=== PATIENT | male | born 1970 | race American Indian/Alaskan Native ===

== ENCOUNTER 2019-11-28 14:13 | Inpatient (IN) | payer OTHER ==
[2019-11-28 14:34] LABS: Basophils % (Auto) 0.5 % (0.0-1.8); Eosinophils # (Auto) 0.1 K/mm3 (0.0-0.4); Eosinophils % (Auto) 0.7 % (0.0-4.3); Hemoglobin 13.1 gm/dl (11.8-15.2); Lymphocytes # (Auto) 3.3 K/mm3 (1.2-5.4); Lymphocytes % (Auto) 43.1 % (13.4-35.0); Mean Corpuscular HGB Conc 35 % (32-34); Mean Corpuscular Volume 97 fl (84-94); Monocytes # (Auto) 0.6 K/mm3 (0.0-0.8); Monocytes % (Auto) 7.8 % (0.0-7.3); Platelet Count 291 K/mm3 (140-440); Red Blood Count 3.83 M/mm3 (3.65-5.03); Red Cell Distribution Width 14.3 % (13.2-15.2)
[2019-11-28] MEDS ORDERED: ALTEPLASE 100 MG INJ KIT IV ONE ×2 (14:38)
[2019-11-28 14:45] LABS: INR 0.94 (0.87-1.13)
--- NOTE | 2019-11-28 14:45 | Cat Scan Report ---
CT HEAD WITHOUT CONTRAST INDICATION: Right sided facial weakness. Aphasia.. TECHNIQUE: All CT scans at this location are performed using CT dose reduction for ALARA by means of automated e xposure control. COMPARISON: None available. FINDINGS: HEMORRHAGE: None. EXTRA-AXIAL SPACES: Normal in size and morphology for the patient's age. VENTRICULAR SYSTEM: Normal in size and morphology for the patient's age. BRAIN PARENCHYMA: No acute findings. MIDLINE SHIFT OR HERNIATION: None. ORBITS: Normal as visualized. SOFT TISSUES OF HEAD: Normal. CALVARIUM: Normal. VISUALIZED PARANASAL SINUSES AND MASTOID AIR CELLS: Clear. ADDITIONAL FINDINGS: None. IMPRESSION: 1. No acute intracranial abnormality. CODE STROKE COMMUNICATION: Time of Communication: 1340 hours central time Licensed Practitioner Receiving Report: Dr. Badillo Signer Name: Johnie Richter MD Signed: 11/28/2019 2:41 PM Workstation Name: [id number]
[2019-11-28 14:46] LABS: Partial Thromboplastin Time 26.7 Sec. (24.2-36.6)
[2019-11-28 14:47] LABS: BUN/Creatinine Ratio 11; Blood Urea Nitrogen 11 mg/dL (9-20); Calcium 9.4 mg/dL (8.4-10.2); Hemolysis Index 10
--- NOTE | 2019-11-28 14:49 | Emergency Department Report ---
ED Neuro Deficit HPI - General Chief Complaint: Neuro Symptoms/Deficit Stated Complaint: STROKE Time Seen by Provider: 11/28/19 14:26 Source: EMS Mode of arrival: Stretcher Limitations: No Limitations - History of Present Illness Initial Comments: Patient is 49 years old male with history of hypertension. Patient brought to the emergency room from home via EMS for stroke evaluation. Patient stated that he was mourning his grass when all of a sudden he had a slurred speech and right facial droop and right upper extremity weakness and numbness. Patient stated this is happening approximately 1300 today. Patient denied any blurry vision, ataxia, bowel or bladder incontinence. Code stroke immediately initiated and patient moved to CT for stat CT brain without contrast. Stroke telemetry neurology immediately consulted and patient examined by Dr. Garcia. Patient found to be a TPA candidate Dr. Garcia order a TPA. -: Sudden, This morning Location: speech, right face, right arm Presenting Symptoms: Present: Weak/Paralyzed One Side, Facial Droop/Numbness, Unable to Speak Clearly History of same: No Place: home Context: sudden onset Associated Symptoms: denies other symptoms Treatments Prior to Arrival: none - Related Data Allergies/Adverse Reactions: Allergies Allergy/AdvReac Type Severity Reaction Status Date / Time No Known Allergies Allergy Unverified 11/28/19 14:14 ED Review of Systems ROS: Stated complaint: STROKE Other details as noted in HPI Comment: All other systems reviewed and negative Constitutional: denies: chills, fever Respiratory: denies: cough, shortness of breath, SOB with exertion, SOB at rest, wheezing Cardiovascular: denies: chest pain, palpitations Gastrointestinal: denies: abdominal pain, nausea, vomiting, diarrhea, constipation, hematemesis, melena, hematochezia Musculoskeletal: denies: back pain Neurological: weakness, numbness. denies: headache, paresthesias, confusion, abnormal gait ED Neuro Physical Exam - General Limitations: No Limitations General appearance: alert, in no apparent distress Suspected Stroke: Yes - Head Head exam: Present: atraumatic, normocephalic, normal inspection - Eye Eye exam: Present: normal appearance, PERRL - ENT ENT exam: Present: normal exam, normal orophraynx, mucous membranes moist - Neck Neck exam: Present: normal inspection, full ROM. Absent: tenderness, meningismus, lymphadenopathy, thyromegaly - Respiratory Respiratory exam: Present: normal lung sounds bilaterally - Cardiovascular Cardiovascular Exam: Present: regular rate, normal rhythm, normal heart sounds - GI/Abdominal GI/Abdominal exam: Present: soft, normal bowel sounds. Absent: distended, tenderness, guarding, rebound, rigid, organomegaly, mass, bruit, pulsatile mass, hernia - Extremities Exam Extremities exam: Present: normal inspection, full ROM, normal capillary refill. Absent: pedal edema, calf tenderness - Back Exam Back exam: Present: normal inspection, full ROM - Neurological Exam Neurological exam: Present: alert, oriented X3 - NIHSS Assessment Interval: Baseline 1a. Level of Consciousness: alert/keenly responsive 1b. LOC Questions: answers both correctly 1c. LOC Commands: performs tasks correctly 2. Best Gaze: normal 3. Visual: no visual loss 4. Facial Palsy: minor paralysis 5b. Motor Arm Right: drift 5a. Motor Arm Left: no drift 6a. Motor Leg Left: no drift 6b. Motor Leg Right: no drift 7. Limb Ataxia: absent 8. Sensory: mild/moderate sensory loss 9. Best Language: mild/moderate aphasia 10. Dysarthria: mild/moderate dysarthria 11. Extinction/Inattention: no abnormality Total Score: 5 Stroke Severity: Moderate Stroke - Psychiatric Psychiatric exam: Present: normal mood - Skin Skin exam: Present: warm, intact, normal color ED Course Vital Signs 11/28/19 11/28/19 11/28/19 14:30 14:47 14:49 Temperature 98.4 F Pulse Rate 80 82 84 Pulse Rate [ 72 Left Arm] Respiratory 16 Rate Respiratory 16 Rate [Left Arm] Blood Pressure 105/63 107/65 107/65 Blood Pressure 107/65 [Left Arm] O2 Sat by Pulse 97 Oximetry O2 Sat by Pulse 95 Oximetry [Left Arm] 11/28/19 11/28/19 15:00 15:15 Temperature Pulse Rate 78 Pulse Rate [ 76 Left Arm] Respiratory 16 Rate Respiratory 17 Rate [Left Arm] Blood Pressure 107/67 Blood Pressure 102/61 [Left Arm] O2 Sat by Pulse Oximetry O2 Sat by Pulse 96 Oximetry [Left Arm] - Lab Data Result diagrams: 11/28/19 14:26 11/28/19 14:26 Lab Results 11/28/19 11/28/19 11/28/19 Range/Units 14:26 14:26 14:26 WBC 7.7 (4.5-11.0) K/mm3 RBC 3.83 (3.65-5.03) M/mm3 Hgb 13.1 (11.8-15.2) gm/dl Hct 37.0 (35.5-45.6) % MCV 97 H (84-94) fl MCH 34 H (28-32) pg MCHC 35 H (32-34) % RDW 14.3 (13.2-15.2) % Plt Count 291 (140-440) K/mm3 Lymph % (Auto) 43.1 H (13.4-35.0) % [place] % (Auto) 7.8 H (0.0-7.3) % Eos % (Auto) 0.7 (0.0-4.3) % Baso % (Auto) 0.5 (0.0-1.8) % Lymph # 3.3 (1.2-5.4) K/mm3 [place] # 0.6 (0.0-0.8) K/mm3 Eos # 0.1 (0.0-0.4) K/mm3 Baso # 0.0 (0.0-0.1) K/mm3 Seg Neutrophils % 47.9 (40.0-70.0) % Seg Neutrophils # 3.7 (1.8-7.7) K/mm3 PT 12.7 (12.2-14.9) Sec. INR 0.94 (0.87-1.13) APTT 26.7 (24.2-36.6) Sec. Thrombin Time 16.1 (15.1-19.6) Sec. Sodium 139 (137-145) mmol/L Potassium 3.5 L (3.6-5.0) mmol/L Chloride 99.9 (98-107) mmol/L Carbon Dioxide 21 L (22-30) mmol/L Anion Gap 22 mmol/L BUN 11 (9-20) mg/dL Creatinine 1.0 (0.8-1.3) mg/dL Estimated GFR > 60 ml/min BUN/Creatinine Ratio 11 % Glucose 108 H (75-100) mg/dL POC Glucose (70-105) Calcium 9.4 (8.4-10.2) mg/dL Troponin T < 0.010 (0.00-0.029) ng/mL 11/28/19 Range/Units 14:41 WBC (4.5-11.0) K/mm3 RBC (3.65-5.03) M/mm3 Hgb (11.8-15.2) gm/dl Hct (35.5-45.6) % MCV (84-94) fl MCH (28-32) pg MCHC (32-34) % RDW (13.2-15.2) % Plt Count (140-440) K/mm3 Lymph % (Auto) (13.4-35.0) % [place] % (Auto) (0.0-7.3) % Eos % (Auto) (0.0-4.3) % Baso % (Auto) (0.0-1.8) % Lymph # (1.2-5.4) K/mm3 [place] # (0.0-0.8) K/mm3 Eos # (0.0-0.4) K/mm3 Baso # (0.0-0.1) K/mm3 Seg Neutrophils % (40.0-70.0) % Seg Neutrophils # (1.8-7.7) K/mm3 PT (12.2-14.9) Sec. INR (0.87-1.13) APTT (24.2-36.6) Sec. Thrombin Time (15.1-19.6) Sec. Sodium (137-145) mmol/L Potassium (3.6-5.0) mmol/L Chloride (98-107) mmol/L Carbon Dioxide (22-30) mmol/L Anion Gap mmol/L BUN (9-20) mg/dL Creatinine (0.8-1.3) mg/dL Estimated GFR ml/min BUN/Creatinine Ratio % Glucose (75-100) mg/dL POC Glucose 92 (70-105) Calcium (8.4-10.2) mg/dL Troponin T (0.00-0.029) ng/mL - EKG Data -: EKG Interpreted by Me EKG shows normal: sinus rhythm Rate: normal Interpretation: no acute changes - Radiology Data Radiology results: report reviewed - Medical Decision Making Patient is 49 years old male with history of hypertension. Patient brought to the emergency room from home via EMS for stroke evaluation. Patient stated that he was mourning his grass when all of a sudden he had a slurred speech and right facial droop and right upper extremity weakness and numbness. Patient stated this is happening approximately 1300 today. Patient denied any blurry vision, ataxia, bowel or bladder incontinence. Code stroke immediately initiated and patient moved to CT for stat CT brain without contrast. Stroke telemetry neurology immediately consulted and patient examined by Dr. Garcia. Patient found to be a TPA candidate Dr. Garcia order a TPA. EKG shows sinus rhythm. Labs reviewed and is unremarkable. Patient is currently getting a TPA infusion. No complication so far. I discussed the patient with Dr. Aguilera, he agreed to admit the patient to medical service for further management. Critical Care Time: Yes Critical care time in (mins) excluding proc time.: 30 Critical care attestation.: If time is entered above; I have spent that time in minutes in the direct care of this critically ill patient, excluding procedure time. ED Disposition Clinical Impression: Stroke due to embolism of left middle cerebral artery, Received tissue pl asminogen activator (tPA) less than 24 hours prior to arrival Disposition: DC-09 OP ADMIT IP TO THIS HOSP Is pt being admited?: Yes Condition: Stable
[2019-11-28 14:51] LABS: Thrombin Time 16.1 Sec. (15.1-19.6)
--- NOTE | 2019-11-28 14:56 | Emergency Department Report ---
ED Neuro Deficit HPI - General Chief Complaint: Neuro Symptoms/Deficit Stated Complaint: STROKE Time Seen by Provider: 11/28/19 14:26 Source: EMS Mode of arrival: Stretcher Limitations: No Limitations - History of Present Illness Initial Comments: [facility] Date of Service: 11/28/2019 14:15:55 Impression: Small Vessel Infarct Left Hemispheric Infarct Comments/Sign-Out: Pt has symptoms and signs of small vessel L hemisphere stroke. All benefits and risks explained and pt consented. Discussed with ED MD who concurred. He needs follow-up CT, MRI brain, echocardiogram, MRA of the head and neck, A1c, fasting lipid profile. Mechanism of Stroke: Possible Thromboembolic Metrics: Last Known Well: 11/28/2019 13:00:00 [employer] Notification Time: 11/28/2019 14:15:22 Arrival Time: 11/28/2019 14:09:00 Stamp Time: 11/28/2019 14:15:55 Time First Login Attempt: 11/28/2019 14:18:00 Video Start Time: 11/28/2019 14:18:00 Symptoms: slurred speech, right facial droop NIHSS Start Assessment Time: 11/28/2019 14:28:00 tPA Verbal Order Time: 11/28/2019 14:37:16 Patient is a candidate for tPA. tPA CPOE Order Time: 11/28/2019 14:40:34 Needle Time: 11/28/2019 14:47:00 Weight Noted by Staff: 80.7 kg Video End Time: 11/28/2019 14:49:40 CT head showed no acute hemorrhage or acute core infarct. CT head was reviewed and results were: No evidence of acute ischemic change, hemorrhage, mass lesion. Clinical Presentation is not Suggestive of Large Vessel Occlusive Disease Radiologist was not called back for review of advanced imaging because not indicated ED Physician notified of diagnostic impression and management plan on 11/28/2019 14:39:00 Verbal Consent to tPA: I have explained to the Patient the nature of the patients condition, reviewed the indications and contraindications to the use of tPA fibrinolytic agent, reviewed the indications and contraindications and the benefits to be reasonably expected compared with alternative approaches. I have discussed the likelihood of major risks or complications of this procedure including (if applicable) but not limited to loss of limb function, brain damage, paralysis, hemorrhage, infection, complications from transfusion of blood components, drug reactions, blood clots and loss of life. I have also indicated that with any procedure there is always the possibility of an unexpected complication. All questions were answered and Patient express understanding of the treatment plan and consent to the treatment. Our recommendations are outlined below. Recommendations: IV tPA recommended. tPA bolus given Without Complication. IV tPA Total Dose 72.6 mg IV tPA Bolus Dose 7.3 mg IV tPA Infusion Dose - 65.4 mg Routine post tPA monitoring including neuro checks and blood pressure control during/after treatment Monitor blood pressure Check blood pressure and NIHSS every 15 min for 2 h, then every 30 min for 6 h, and finally every hour for 16 h. Manage Blood Pressure per post tPA protocol. Admission to ICU CT brain 24 hours post tPA NPO until swallowing screen performed and passed No antiplatelet agents or anticoagulants (including heparin for DVT prophylaxis) in first 24 hours No Mays catheter, nasogastric tube, arterial catheter or central venous catheter for 24 hr, unless absolutely necessary Telemetry Bedside swallow evaluation HOB less than 30 degrees Euglycemia Avoid hyperthermia, PRN acetaminophen DVT prophylaxis Inpatient Neurology Consultation Stroke evaluation as per inpatient neurology recommendations Discussed with ED physician History of Present Illness: Patient is a 49 year old Male. Patient was brought by EMS for symptoms of slurred speech, right facial droop This is a 49 year old man who was mowing his lawn and last seen normal at 1300. After completion he had slurred speech and right facial droop. His legs were weak. He has never had such symptoms in the past. He has no history of diabetes, coronary disease, or hyperlipidemia. Last seen normal was within 4.5 hours. Past Medical History: Hypertension Anticoagulant use: No Antiplatelet use: No Examination: BP(106/63), Pulse(79), Blood Glucose(92) 1A: Level of Consciousness - Alert; keenly responsive + 0 1B: Ask Month and Age - Both Questions Right + 0 1C: Blink Eyes & Squeeze Hands - Performs Both Tasks + 0 2: Test Horizontal Extraocular Movements - Normal + 0 3: Test Visual Granados - No Visual Loss + 0 4: Test Facial Palsy (Use Grimace if Obtunded) - Minor paralysis (flat nasolabial fold, smile asymmetry) + 1 5A: Test Left Arm Motor Drift - No Drift for 10 Seconds + 0 5B: Test Right Arm Motor Drift - Drift, but doesn't hit bed + 1 6A: Test Left Leg Motor Drift - No Drift for 5 Seconds + 0 6B: Test Right Leg Motor Drift - No Drift for 5 Seconds + 0 7: Test Limb Ataxia (FNF/Heel-Collins) - No Ataxia + 0 8: Test Sensation - Mild-Moderate Loss: Less Sharp/More Dull + 1 9: Test Language/Aphasia - Normal; No aphasia + 0 10: Test Dysarthria - Mild-Moderate Dysarthria: Slurring but can be understood + 1 11: Test Extinction/Inattention - No abnormality + 0 NIHSS Score: 4 Patient/Family was informed the Neurology Consult would happen via TeleHealth consult by way of interactive audio and video telecommunications and consented to receiving care in this manner. Due to the immediate potential for life-threatening deterioration due to underlying acute neurologic illness, I spent 35 minutes providing critical care. This time includes time for face to face visit via telemedicine, review of medical records, imaging studies and discussion of findings with providers, the patient and/or family. Dr Avtar Garcia [facility] Case [id number] Location: speech, right face, right arm History of same: No Place: home Treatments Prior to Arrival: none - Related Data Allergies/Adverse Reactions: Allergies Allergy/AdvReac Type Severity Reaction Status Date / Time No Known Allergies Allergy Unverified 11/28/19 14:14 ED Review of Systems ROS: Stated complaint: STROKE Other details as noted in HPI Constitutional: denies: chills, fever Respiratory: denies: cough, shortness of breath, SOB with exertion, SOB at rest, wheezing Cardiovascular: denies: chest pain, palpitations Gastrointestinal: denies: abdominal pain, nausea, vomiting, diarrhea, constipation, hematemesis, melena, hematochezia Musculoskeletal: denies: back pain Neurological: weakness, numbness. denies: headache, paresthesias, confusion, abnormal gait ED Neuro Physical Exam - General Limitations: No Limitations General appearance: alert, in no apparent distress Suspected Stroke: Yes - NIHSS Assessment Interval: Baseline 1a. Level of Consciousness: alert/keenly responsive 1b. LOC Questions: answers both correctly 1c. LOC Commands: performs tasks correctly 2. Best Gaze: normal 3. Visual: no visual loss 4. Facial Palsy: partial paralysis 5b. Motor Arm Right: drift 5a. Motor Arm Left: no drift 6a. Motor Leg Left: no drift 6b. Motor Leg Right: drift 7. Limb Ataxia: absent 8. Sensory: normal 9. Best Language: no aphasia 10. Dysarthria: mild/moderate dysarthria 11. Extinction/Inattention: no abnormality Total Score: 5 Stroke Severity: Moderate Stroke - Lab Data Result diagrams: 11/28/19 14:26 11/28/19 14:26 Lab Results 11/28/19 11/28/19 11/28/19 Range/Units 14:26 14:26 14:26 WBC 7.7 (4.5-11.0) K/mm3 RBC 3.83 (3.65-5.03) M/mm3 Hgb 13.1 (11.8-15.2) gm/dl Hct 37.0 (35.5-45.6) % MCV 97 H (84-94) fl MCH 34 H (28-32) pg MCHC 35 H (32-34) % RDW 14.3 (13.2-15.2) % Plt Count 291 (140-440) K/mm3 Lymph % (Auto) 43.1 H (13.4-35.0) % [place] % (Auto) 7.8 H (0.0-7.3) % Eos % (Auto) 0.7 (0.0-4.3) % Baso % (Auto) 0.5 (0.0-1.8) % Lymph # 3.3 (1.2-5.4) K/mm3 [place] # 0.6 (0.0-0.8) K/mm3 Eos # 0.1 (0.0-0.4) K/mm3 Baso # 0.0 (0.0-0.1) K/mm3 Seg Neutrophils % 47.9 (40.0-70.0) % Seg Neutrophils # 3.7 (1.8-7.7) K/mm3 PT 12.7 (12.2-14.9) Sec. INR 0.94 (0.87-1.13) APTT 26.7 (24.2-36.6) Sec. Thrombin Time 16.1 (15.1-19.6) Sec. Sodium 139 (137-145) mmol/L Potassium 3.5 L (3.6-5.0) mmol/L Chloride 99.9 (98-107) mmol/L Carbon Dioxide 21 L (22-30) mmol/L Anion Gap 22 mmol/L BUN 11 (9-20) mg/dL Creatinine 1.0 (0.8-1.3) mg/dL Estimated GFR > 60 ml/min BUN/Creatinine Ratio 11 % Glucose 108 H (75-100) mg/dL Calcium 9.4 (8.4-10.2) mg/dL Troponin T < 0.010 (0.00-0.029) ng/mL Critical care attestation.: If time is entered above; I have spent that time in minutes in the direct care of this critically ill patient, excluding procedure time. ED Disposition Clinical Impression: Stroke due to embolism of left middle cerebral artery Disposition: DC-09 OP ADMIT IP TO THIS HOSP Is pt being admited?: Yes Condition: Stable
[2019-11-28] MEDS ORDERED: SODIUM CHLORIDE 0.9% 50 ML IVPB IV ONE (15:00)
[2019-11-28] MEDS ORDERED: MAGNESIUM HYDROXIDE (MOM) ORAL LIQD UDC PO PRN (15:35)
[2019-11-28] MEDS ORDERED: PROMETHAZINE 25 MG RECT SUPP PR PRN (15:35)
[2019-11-28] MEDS ORDERED: ACETAMINOPHEN 325 MG TAB PO PRN (15:35)
[2019-11-28] MEDS ORDERED: ONDANSETRON 4 MG/2 ML INJ IV PRN (15:35)
[2019-11-28] MEDS ORDERED: METOCLOPRAMIDE 10 MG TAB PO PRN (15:35)
--- NOTE | 2019-11-28 15:35 | History and Physical Report ---
History of Present Illness Chief complaint: I got weak on the right side History of present illness: 49 YO Male with HTN presents to ED for evaluation. Patient states that he was in his usual state of health and was outside mowing his lawn. Patient states that he went inside to get some rest at approximately 1300 hrs. and experienced an acute onset of right-sided facial droop, slurred speech, as well as right arm weakness. EMS was notified and upon arrival the patient was found to have a neurologic deficit. A code stroke was called and the patient was transported to [facility] for further care and evaluation of the aforementioned symptoms. Patient seen and evaluated in the emergency department. Lab and imaging studies reviewed. Patient found to have findings consistent with acute CVA. Patient treated with TPA in the emergency department. Patient symptoms improved with therapy. Patient initiated on stroke protocol. Patient admitted to ICU. Patient denies fever, chills, chest pain, palpitation, productive cough, skin rash, recent ill contacts, or known exposure to COVID-19. No medication listed at time of admission for reconciliation. No prior admission for review. Past History Past Medical History: hypertension Past Surgical History: No surgical history, Other (Reviewed) Social history: , lives with family. denies: smoking, alcohol abuse, prescription drug abuse Family history: hypertension Medications and Allergies Allergies Allergy/AdvReac Type Severity Reaction Status Date / Time No Known Allergies Allergy Unverified 11/28/19 14:14 Active Meds: Active Medications Labetalol HCl (Labetalol) 10 mg IV Q5MIN PRN PRN Reason: to maintain SBP < 180 Review of Systems Constitutional: no weight loss, no weight gain, no fever, no chills, no sweats Ears, nose, mouth and throat: no ear pain, no ear discharge, no tinnitis, no decreased hearing, no nose pain, no nasal congestion, no nasal discharge Cardiovascular: no chest pain, no orthopnea, no palpitations, no rapid/irregular heart beat, no edema, no syncope Respiratory: no cough, no hemoptysis, no dyspnea on exertion Gastrointestinal: no abdominal pain, no nausea, no vomiting, no diarrhea, no change in bowel habits, no hematemesis Genitourinary Male: no hematuria, no flank pain, no discharge, no urinary frequency Rectal: no pain, no incontinence Musculoskeletal: no neck stiffness, no neck pain, no shooting arm pain, no shooting leg pain Integumentary: no rash, no pruritis, no redness, no sores, no wounds, no jaundice Neurological: paralysis, weakness, change in speech, motor disturbance, no headaches, no migraines, no tic, no convulsions Psychiatric: no anxiety, no memory loss, no change in sleep habits, no sleep disturbances, no insomnia Endocrine: no cold intolerance, no heat intolerance, no polyphagia, no polydipsia, no excessive sweating Hematologic/Lymphatic: no easy bruising, no easy bleeding Allergic/Immunologic: no urticaria, no allergic rhinitis, no anaphylaxis Exam - Constitutional Vitals: Temp Pulse Resp BP Pulse Ox 98.4 F 77 17 103/54 98 11/28/19 14:30 11/28/19 15:30 11/28/19 15:30 11/28/19 15:30 11/28/19 15:30 General appearance: Present: mild distress - EENT Eyes: Present: PERRL ENT: hearing intact, clear oral mucosa - Neck Neck: Present: supple, normal ROM - Respiratory Respiratory effort: normal Respiratory: bilateral: CTA - Cardiovascular Heart Sounds: Present: S1 & S2. Absent: rub, click - Extremities Extremities: pulses symmetrical, No edema Peripheral Pulses: within normal limits - Abdominal General gastrointestinal: Present: soft, non-tender, non-distended, normal bowel sounds Male genitourinary: Present: normal - Integumentary Integumentary: Present: clear, warm, dry - Musculoskeletal Musculoskeletal: gait normal, strength equal bilaterally - Psychiatric Psychiatric: appropriate mood/affect, intact judgment & insight - Neurologic Neurologic: CNII-XII intact, moves all extremities HEART Score - HEART Score Troponin: Troponin T < 0.010 ng/mL (0.00-0.029) 11/28/19 14:26 Results - Labs CBC & Chem 7: 11/28/19 14:26 11/28/19 14:26 Labs: Abnormal lab results 11/28/19 11/28/19 Range/Units 14:26 14:26 MCV 97 H (84-94) fl MCH 34 H (28-32) pg MCHC 35 H (32-34) % Lymph % (Auto) 43.1 H (13.4-35.0) % [place] % (Auto) 7.8 H (0.0-7.3) % Potassium 3.5 L (3.6-5.0) mmol/L Carbon Dioxide 21 L (22-30) mmol/L Glucose 108 H (75-100) mg/dL Assessment and Plan - Patient Problems (1) CVA (cerebral vascular accident) Current Visit: Yes Status: Acute Plan to address problem: CVA protocol: Admit to ICU, CT head, neuro check, tele-neurology consulted in ED, patient is status post TPA administration in the emergency department. Physical therapy, Occupational Therapy, speech therapy, lipid panel, statin therapy, echocardiogram, carotid Doppler, initiate antiplatelet therapy no earlier than 24 hours status post TPA. (2) Hypertension Current Visit: Yes Status: Acute Qualifiers: Hypertension type: essential hypertension Qualified Code(s): I10 - Essential (primary) hypertension Plan to address problem: Monitor blood pressure every shift. (3) DVT prophylaxis Current Visit: Yes Status: Acute Plan to address problem: SCD to bilateral lower extremities while in bed
[2019-11-28] MEDS: PRAVASTATIN 40 MG TAB PO SCH (21:36)
[2019-11-29 06:53] LABS: Chol/HDL Ratio 3.22 %
--- NOTE | 2019-11-29 09:57 | Consultation ---
History of Present Illness Consult date: 11/29/19 Requesting physician: ADOLPH SONG History of present illness: 49 YO Male with HTN presents to ED for evaluation. Patient states that he was i n his usual state of health and was outside mowing his lawn. Patient states that he went inside to get some rest at approximately 1300 hrs. and experienced an acute onset of right-sided facial droop, slurred speech, as well as right arm weakness. EMS was notified and upon arrival the patient was found to have a neurologic deficit. A code stroke was called and the patient was transported to [facility] for further care and evaluation of the aforementioned symptoms. Patient seen and evaluated in the emergency department. Lab and imaging studies reviewed. Patient found to have findings consistent with acute CVA. Patient treated with TPA in the emergency department. Patient symptoms improved with therapy. Patient initiated on stroke protocol. Patient admitted to ICU. I have been consulted for critical care management. Patient was seen and examined. Vitals, labs, medications, chart and imaging reviewed. s/p TPA, no acute events, states he feels much better. Past History Past Medical History: hypertension Past Surgical History: No surgical history, Other (Reviewed) Social history: , lives with family. denies: smoking, alcohol abuse, prescription drug abuse Family history: hypertension Medications and Allergies Allergies Allergy/AdvReac Type Severity Reaction Status Date / Time No Known Allergies Allergy Unverified 11/28/19 14:14 Active Meds: Active Medications Acetaminophen (Tylenol) 650 mg PO Q4H PRN PRN Reason: Pain, Mild (1-3) Aspirin (Aspirin) 325 mg PO QDAY DUSTIN Bisacodyl (Dulcolax) 10 mg [place] QDAY PRN PRN Reason: Constipation Labetalol HCl (Labetalol) 10 mg IV Q5MIN PRN PRN Reason: to maintain SBP < 180 Magnesium Hydroxide (Milk Of Magnesia) 30 ml PO Q4H PRN PRN Reason: Constipation Metoclopramide HCl (Reglan) 10 mg PO Q6H PRN PRN Reason: Nausea And Vomiting Ondansetron HCl (Zofran) 4 mg IV Q8H PRN PRN Reason: Nausea And Vomiting Pravastatin Sodium (Pravachol) 40 mg PO QHS [facility] Last Admin: 11/28/19 21:36 Dose: 40 mg Documented by: Promethazine HCl (Phenergan) 25 mg NE Q6H PRN PRN Reason: Nausea And Vomiting Sodium Chloride (Sodium Chloride Flush Syringe 10 Ml) 10 ml IV PRN PRN PRN Reason: LINE FLUSH Review of Systems Constitutional: no weight loss, no weight gain, no fever, no chills, no sweats Cardiovascular: no chest pain, no orthopnea, no palpitations, no edema, no syncope, no lightheadedness, no shortness of breath Respiratory: no cough, no hemoptysis, no shortness of breath, no dyspnea on exertion Gastrointestinal: no abdominal pain, no nausea, no vomiting, no change in bowel habits, no BRBPR Musculoskeletal: no neck pain, no shooting arm pain, no low back pain Neurological: no head injury, no transient paralysis, no paralysis, no weakness, no numbness, no seizures, no syncope, no tremors Psychiatric: no anxiety, no memory loss, no insomnia, no depression, no hopelessness Physical Examination Vital signs: Vital Signs Temp Pulse Resp BP Pulse Ox 98.4 F 80 16 105/63 97 11/28/19 14:30 11/28/19 14:30 11/28/19 14:30 11/28/19 14:30 11/28/19 14:30 Vitals reviewed. General appearance: Present: no distress - EENT Eyes: Present: PERRL ENT: hearing intact, clear oral mucosa - Neck Neck: Present: supple, normal ROM - Respiratory Respiratory effort: normal Respiratory: bilateral: CTA - Cardiovascular Heart Sounds: Present: S1 & S2. Absent: rub, click - Extremities Extremities: pulses symmetrical, No edema Peripheral Pulses: within normal limits - Abdominal General gastrointestinal: Present: soft, non-tender, non-distended, normal bowel sounds Male genitourinary: Present: normal - Integumentary Integumentary: Present: clear, warm, dry - Musculoskeletal Musculoskeletal: gait normal, strength equal bilaterally - Psychiatric Psychiatric: appropriate mood/affect, intact judgment & insight - Neurologic Neurologic: CNII-XII intact, moves all extremities Results - Laboratory Findings CBC and BMP: 11/28/19 14:26 11/28/19 14:26 PT/INR, D-dimer PT 12.7 Sec. (12.2-14.9) 11/28/19 14: INR 0.94 (0.87-1.13) 11/28/19 14:26 Abnormal lab findings: Abnormal Labs 11/28/19 11/28/19 11/29/19 14:26 14:26 05:30 MCV 97 H MCH 34 H MCHC 35 H Lymph % (Auto) 43.1 H [place] % (Auto) 7.8 H Potassium 3.5 L Carbon Dioxide 21 L Glucose 108 H Cholesterol 216 H LDL Cholesterol Direct 151 H HDL Cholesterol 67 H - Diagnostic Findings CT scan - chest: report reviewed Assessment and Plan CVA s/p TPA HTN RECOMMENDATIONS Continue his admission to ICU CT brain 24 hours post tPA- scheduled for 2pm today NPO until swallowing screen performed and passed No antiplatelet agents or anticoagulants (including heparin for DVT prophylaxis) in first 24 hours No [place] catheter, nasogastric tube, arterial catheter or central venous catheter for 24 hours, unless absolutely necessary Bedside swallow evaluation HOB less than 30 degrees Euglycemia, avoid hypoglycemia Avoid hyperthermia, PRN acetaminophen DVT prophylaxis-SCDs Inpatient Neurology Consultation Physical therapy, Occupational Therapy, speech therapy, Secondary stroke prophylaxis- statin therapy Blood pressure control Get echocardiogram, carotid Dopplers Thank you for the consult. Will follow
[2019-11-29] MEDS: ASPIRIN 325 MG TAB PO SCH (11:24)
--- NOTE | 2019-11-29 18:51 | Vascular Lab Report ---
VL carotid duplex BILAT INDICATION / CLINICAL INFORMATION: stroke COMPARISON: None available. FINDINGS: RIGHT CAROTID: - CCA velocity: 114 cm/sec. - ICA peak systolic velocity: 57 cm/sec. - ICA/CCA PSV Ratio: Less than 2 Right Vertebral Artery: Antegrade flow. LEFT CAROTID: - CCA velocity: 137 cm/sec. - ICA peak systolic velocity: 70 cm/sec. - ICA/CCA PSV Ratio: Less than 2 Left Vertebral Artery: Antegrade flow. IMPRESSION: 1. Mild atherosclerosis without occlusion or hemodynamically significant stenosis of the bilateral ca rotid arteries. Velocity criteria are extrapolated from diameter data as defined by the Society of Radiologists in Ul trasound Consensus Conference, Radiology 2003; 229;340-346. NO STENOSIS (NORMAL) * Plaque = none; ICA PSV < 125 cm/sec; ICA/CCA PSV Ratio < 2.0 <50% STENOSIS * Plaque < 50%; ICA PSV < 125 cm/sec; ICA/CCA PSV Ratio < 2.0 50-69% STENOSIS * Plaque > 50%; ICA PSV = 125-230 cm/sec; ICA/CCA PSV Ratio = 2.0-4.0 >70% BUT <100% STENOSIS * Plaque > 50%; ICA PSV < 230 cm/sec; ICA/CCA PSV Ratio > 4.0 NEAR OCCLUSION * Plaque = visible lumen; ICA PSV = high/low/none; ICA/CCA PSV Ratio = variable TOTAL OCCLUSION * Plaque = no lumen; ICA PSV = none; ICA/CCA PSV Ratio = N/A Signer Name: Umberto Renteria MD Signed: 11/29/2019 6:46 PM Workstation Name: [id number]
--- NOTE | 2019-11-29 21:14 | Progress Note ---
Assessment and Plan - Patient Problems (1) CVA (cerebral vascular accident) Current Visit: Yes Status: Acute Plan to address problem: CVA protocol: Admit to ICU, CT head, neuro check, tele-neurology consulted in ED, patient is status post TPA administration in the emergency department. Physical therapy, Occupational Therapy, speech therapy, lipid panel, statin therapy, echocardiogram, carotid Doppler, initiate antiplatelet therapy no earlier than 24 hours status post TPA. Downgrade to floor as per protocol status post TPA. (2) Hypertension Current Visit: Yes Status: Acute Qualifiers: Hypertension type: essential hypertension Qualified Code(s): I10 - Essential (primary) hypertension Plan to address problem: Monitor blood pressure every shift. (3) DVT prophylaxis Current Visit: Yes Status: Acute Plan to address problem: SCD to bilateral lower extremities while in bed History Interval history: 49 YO Male HD #2 with CVA S/P TPA. Patient resting comfortably. Patient states that his symptoms are improved. No reported nursing events, patient denies pain. Hospitalist Physical - Constitutional Vitals: Temp Pulse Resp BP Pulse Ox 98.2 F 61 17 131/93 98 11/29/19 20:00 11/29/19 19:11 11/29/19 19:11 11/29/19 19:11 11/29/19 19:11 General appearance: Present: mild distress - EENT Eyes: Present: PERRL, EOM intact ENT: hearing intact - Neck Neck: Present: supple - Respiratory Respiratory: bilateral: CTA - Cardiovascular Rhythm: regular Heart Sounds: Present: S1 & S2 - Extremities Extremities: no ischemia Peripheral Pulses: within normal limits - Abdominal General gastrointestinal: soft, non-tender, non-distended - Integumentary Integumentary: Present: clear, dry - Psychiatric Psychiatric: appropriate mood/affect, cooperative - Neurologic Neurologic: CNII-XII intact HEART Score - HEART Score Troponin: Troponin T < 0.010 ng/mL (0.00-0.029) 11/28/19 14:26 Results - Labs CBC & Chem 7: 11/28/19 14:26 11/28/19 14:26 Labs: Laboratory Last Values WBC 7.7 K/mm3 (4.5-11.0) 11/28/19 14:26 RBC 3.83 M/mm3 (3.65-5.03) 11/28/19 14:26 Hgb 13.1 gm/dl (11.8-15.2) 11/28/19 14: Hct 37.0 % (35.5-45.6) 11/28/19 14: MCV 97 fl (84-94) H 11/28/19 14: MCH 34 pg (28-32) H 11/28/19 14: MCHC 35 % (32-34) H 11/28/19 14: RDW 14.3 % (13.2-15.2) 11/28/19 14: Plt Count 291 K/mm3 (140-440) 11/28/19 14: Lymph % (Auto) 43.1 % (13.4-35.0) H 11/28/19 14: [place] % (Auto) 7.8 % (0.0-7.3) H 11/28/19 14: Eos % (Auto) 0.7 % (0.0-4.3) 11/28/19 14: Baso % (Auto) 0.5 % (0.0-1.8) 11/28/19 14: Lymph # 3.3 K/mm3 (1.2-5.4) 11/28/19 14: [place] # 0.6 K/mm3 (0.0-0.8) 11/28/19 14: Eos # 0.1 K/mm3 (0.0-0.4) 11/28/19 14: Baso # 0.0 K/mm3 (0.0-0.1) 11/28/19 14: Seg Neutrophils % 47.9 % (40.0-70.0) 11/28/19 14: Seg Neutrophils # 3.7 K/mm3 (1.8-7.7) 11/28/19 14: PT 12.7 Sec. (12.2-14.9) 11/28/19 14: INR 0.94 (0.87-1.13) 11/28/19 14: APTT 26.7 Sec. (24.2-36.6) 11/28/19 14: Thrombin Time 16.1 Sec. (15.1-19.6) 11/28/19 14: Sodium 139 mmol/L (137-145) 11/28/19 14:26 Potassium 3.5 mmol/L (3.6-5.0) L 11/28/19 14:26 Chloride 99.9 mmol/L (98-107) 11/28/19 14:26 Carbon Dioxide 21 mmol/L (22-30) L 11/28/19 14:26 Anion Gap 22 mmol/L 11/28/19 14:26 BUN 11 mg/dL (9-20) 11/28/19 14:26 Creatinine 1.0 mg/dL (0.8-1.3) 11/28/19 14:26 Estimated GFR > 60 ml/min 11/28/19 14:26 BUN/Creatinine Ratio 11 % 11/28/19 14:26 Glucose 108 mg/dL (75-100) H 11/28/19 14:26 POC Glucose 92 (70-105) 11/28/19 14:41 Calcium 9.4 mg/dL (8.4-10.2) 11/28/19 14:26 Troponin T < 0.010 ng/mL (0.00-0.029) 11/28/19 14:26 Triglycerides 60 mg/dL (2-149) 11/29/19 05:30 Cholesterol 216 mg/dL (50-199) H 11/29/19 05:30 LDL Cholesterol Direct 151 mg/dL (50-130) H 11/29/19 05:30 HDL Cholesterol 67 mg/dL (40-59) H 11/29/19 05:30 Cholesterol/HDL Ratio 3.22 % 11/29/19 05:30 - Diagnostic Impressions Diagnostic Impressions: Echocardiogram 11/28/19 15:36 Transthoracic Echocardiogram Indication: Stroke BP: 135/88 HR: 62 Conclusions *Global left ventricular systolic function is normal. *The estimated ejection fraction is 55-60%. *Mild to moderate concentric left ventricular hypertrophy is observed. *There is trace of mitral regurgitation. *There is trace tricuspid regurgitation. *There is evidence of borderline pulmonary hypertension. *The right ventricular systolic pressure is calculated at 27 mmHg. *A patent foramen ovale is not demonstrated by agitated saline contrast. Findings Left Ventricle: The left ventricular chamber size is normal. Mild to moderate concentric left ventricular hypertrophy is observed. Global left ventricular systolic function is normal. The estimated ejection fraction is 55-60%. Left Atrium: The left atrial chamber size is normal. Right Ventricle: The right ventricular cavity size is normal. The right ventricular global systolic function is normal. Right Atrium: The right atrial cavity size is normal. A patent foramen ovale is not demonstrated by agitated saline contrast. Aortic Valve: The aortic valve leaflets are mildly thickened. There is no evidence of aortic regurgitation. There is no evidence of aortic stenosis. Mitral Valve: The mitral valve leaflets are mildly thickened. There is trace of mitral regurgitation. There is no evidence of mitral stenosis. Tricuspid Valve: There is trace tricuspid regurgitation. The right ventricular systolic pressure is calculated at 27 mmHg. There is evidence of borderline pulmonary hypertension. Pulmonic Valve: There is mild pulmonic regurgitation. Pericardium: There is no pericardial effusion. Aorta: There is no dilatation of the ascending aorta. There is no dilatation of the aortic root. Venous: The inferior vena cava appears normal in size. Contrast: Intravenous agitated saline contrast was used to assess intracardiac shunting. Measurements Chambers 2D Name Value Normal Range IVSd (2D) 1.02 cm (0.6 - 1.1) LVPWd (2D) 1.02 cm (0.6 - 1.1) LVIDd (2D) 4.82 cm (3.7 - 5.6) LVIDs (2D) 2.96 cm (2 - 3.8) LV FS (2D) 38.53 % - EF Teichholz (2D) 68.73 % - Ao root diameter (2D) 3.1 cm (2 - 3.7) Volumes/Mass Name Value Normal Range LA ESV SP 4CH (A/L) 37.36 ml - LA ESV SP 2CH (A/L) 40.49 ml - LA ESV BP (A/L) 40.55 ml - LA ESV BP (A/L) index 21.34 ml/m2 - LA ESV SP 4CH (MOD) 35.24 ml - LA ESV SP 2CH (MOD) 39.71 ml - LA ESV BP (MOD) 38.87 ml - LA ESV BP (MOD) index 20.46 ml/m2 - Diastolic/Systolic Function Name Value Normal Range MV E-wave Vmax 0.83 m/sec - MV deceleration time 184.73 msec - MV A-wave Vmax 0.57 m/sec - MV E:A ratio 1.47 ratio - Aortic Valve Name Value Normal Range AV Vmax 1.41 m/sec - AV VTI 28.16 cm - AV peak gradient 7.91 mmHg - AV mean gradient 4.5 mmHg - LVOT diameter 2.05 cm - LVOT Vmax 1.02 m/sec - LVOT VTI 21.9 cm - LVOT peak gradient 4.15 mmHg - LVOT mean gradient 2.45 mmHg - SV LVOT 72.47 ml - MANDI (continuity Vmax) 2.4 cm2 - MANDI (continuity VTI) 2.57 cm2 - Tricuspid Valve Name Value Normal Range TR Vmax 2.45 m/sec - TR peak gradient 24 mmHg - RAP 3 mmHg - RVSP 27 mmHg - Pulmonic Valve/Qp:Qs Name Value Normal Range PV Vmax 1.03 m/sec - PV peak gradient 4.27 mmHg - [place] end-diastolic Vmax 1.1 m/sec - PV acceleration time 133.21 msec - [place]/IV: Voiding Method Urinal IV Catheter Type [Right INT / Saline Lock Antecubital] IV Catheter Type [Left Forearm Peripheral IV ] Active Medications - Current Medications Current Medications: Generic Name Dose Route Start Last Admin Trade Name Freq PRN Reason Stop Dose Admin Acetaminophen 650 mg 11/28/19 15:35 Tylenol PO Q4H PRN Pain, Mild (1-3) Aspirin 325 mg 11/29/19 10:00 11/29/19 11:24 Aspirin PO 325 mg QDAY DUSTIN Administration Bisacodyl 10 mg 11/28/19 15:35 Dulcolax [place] QDAY PRN Constipation Labetalol HCl 10 mg 11/28/19 14:38 Labetalol IV Q5MIN PRN to maintain SBP < 180 Magnesium Hydroxide 30 ml 11/28/19 15:35 Milk Of Magnesia PO Q4H PRN Constipation Metoclopramide HCl 10 mg 11/28/19 15:35 Reglan PO Q6H PRN Nausea And Vomiting Ondansetron HCl 4 mg 11/28/19 15:35 Zofran IV Q8H PRN Nausea And Vomiting Pravastatin Sodium 40 mg 11/28/19 22:00 11/28/19 21:36 Pravachol PO 40 mg QHS DUSTIN Administration Promethazine HCl 25 mg 11/28/19 15:35 Phenergan [place] Q6H PRN Nausea And Vomiting Sodium Chloride 10 ml 11/28/19 15:35 Sodium Chloride Flush Syringe 10 Ml IV PRN PRN LINE FLUSH
[2019-11-29] MEDS: PRAVASTATIN 40 MG TAB PO SCH (22:48)
[2019-11-29] MEDS: TEMAZEPAM 15 MG CAP PO PRN (22:51)
--- NOTE | 2019-11-30 09:36 | Progress Note ---
Assessment and Plan CVA s/p TPA HTN CT brain 24 hours post tPA- not done yesterday. Ordered for today Euglycemia, avoid hypoglycemia Avoid hyperthermia, PRN acetaminophen DVT prophylaxis Physical therapy, Occupational Therapy, speech therapy, Secondary stroke prophylaxis- statin therapy, start anti-platelet therapy, Blood pressure control Can transfer out of the ICU Discharge planning per primary service Subjective Date of service: 11/30/19 Interval history: Follow up CVA s/p TPA, HTN Seen and examined. Vitals, labs, medications, chart reviewed. No acute overnight events, respiratory and nursing staff consulted. No chest pain, no shortness of breath, no bleeding. Feels well Objective - Exam Narrative Exam: Vitals reviewed. General appearance: Present: no distress - EENT Eyes: Present: PERRL ENT: hearing intact, clear oral mucosa - Neck Neck: Present: supple, normal ROM - Respiratory Respiratory effort: normal Respiratory: bilateral: CTA - Cardiovascular Heart Sounds: Present: S1 & S2. Absent: rub, click - Extremities Extremities: pulses symmetrical, No edema Peripheral Pulses: within normal limits - Abdominal General gastrointestinal: Present: soft, non-tender, non-distended, normal bowel sounds Male genitourinary: Present: normal - Integumentary Integumentary: Present: clear, warm, dry - Musculoskeletal Musculoskeletal: gait normal, strength equal bilaterally - Psychiatric Psychiatric: appropriate mood/affect, intact judgment & insight - Neurologic Neurologic: CNII-XII intact, moves all extremities Vital Signs - 12hr 11/29/19 11/29/19 11/29/19 21:41 22:01 22:11 Temperature Pulse Rate 59 L 63 Respiratory 16 14 Rate Blood Pressure 120/74 126/85 126/85 O2 Sat by Pulse 99 100 100 Oximetry 11/29/19 11/29/19 11/29/19 22:21 22:31 22:41 Temperature Pulse Rate 56 L 59 L 57 L Respiratory 15 15 15 Rate Blood Pressure 126/85 126/85 126/85 O2 Sat by Pulse 98 97 98 Oximetry 11/29/19 11/29/19 11/29/19 22:51 23:00 23:11 Temperature Pulse Rate 62 61 58 L Respiratory 14 14 18 Rate Blood Pressure 126/85 111/71 111/71 O2 Sat by Pulse 98 98 98 Oximetry 11/29/19 11/29/19 11/29/19 23:21 23:31 23:41 Temperature Pulse Rate 63 63 59 L Respiratory 14 16 13 Rate Blood Pressure 111/71 111/71 111/71 O2 Sat by Pulse 97 98 97 Oximetry 11/29/19 11/30/19 11/30/19 23:51 00:00 00:11 Temperature 98.4 F Pulse Rate 56 L 64 62 Respiratory 15 17 14 Rate Blood Pressure 111/71 105/70 105/70 O2 Sat by Pulse 98 96 97 Oximetry 11/30/19 11/30/19 11/30/19 00:21 00:31 00:41 Temperature Pulse Rate 65 61 63 Respiratory 12 15 15 Rate Blood Pressure 105/70 105/70 105/70 O2 Sat by Pulse 98 96 96 Oximetry 11/30/19 11/30/19 11/30/19 00:51 01:03 01:11 Temperature Pulse Rate 63 Respiratory 15 Rate Blood Pressure 105/70 105/70 105/70 O2 Sat by Pulse 97 95 97 Oximetry 11/30/19 11/30/19 11/30/19 01:21 01:31 01:41 Temperature Pulse Rate 60 63 59 L Respiratory 15 14 15 Rate Blood Pressure 105/70 105/70 105/70 O2 Sat by Pulse 98 97 97 Oximetry 11/30/19 11/30/19 11/30/19 01:51 02:01 02:11 Temperature Pulse Rate 63 59 L 57 L Respiratory 15 15 15 Rate Blood Pressure 105/70 105/70 105/70 O2 Sat by Pulse 98 97 98 Oximetry 11/30/19 11/30/19 11/30/19 02:21 02:31 02:41 Temperature Pulse Rate 59 L 58 L 58 L Respiratory 16 16 17 Rate Blood Pressure 105/70 105/70 105/70 O2 Sat by Pulse 97 97 97 Oximetry 11/30/19 11/30/19 11/30/19 02:51 03:01 03:11 Temperature Pulse Rate 61 61 57 L Respiratory 14 16 15 Rate Blood Pressure 105/70 105/70 105/70 O2 Sat by Pulse 97 98 98 Oximetry 11/30/19 11/30/19 11/30/19 03:21 03:31 03:41 Temperature Pulse Rate 58 L 57 L 61 Respiratory 15 15 12 Rate Blood Pressure 105/70 105/70 105/70 O2 Sat by Pulse 97 97 99 Oximetry 11/30/19 11/30/19 11/30/19 03:51 03:54 04:00 Temperature 98.5 F Pulse Rate 55 L 57 L Respiratory 15 Rate Blood Pressure 105/70 O2 Sat by Pulse 97 Oximetry 11/30/19 11/30/19 11/30/19 04:01 04:11 04:21 Temperature Pulse Rate 57 L 55 L 56 L Respiratory 15 15 14 Rate Blood Pressure 105/70 105/70 105/70 O2 Sat by Pulse 97 97 98 Oximetry 11/30/19 11/30/19 11/30/19 04:31 04:41 04:51 Temperature Pulse Rate 57 L 55 L 59 L Respiratory 15 14 15 Rate Blood Pressure 105/70 105/70 105/70 O2 Sat by Pulse 98 97 98 Oximetry 11/30/19 11/30/19 11/30/19 05:01 05:11 05:21 Temperature Pulse Rate 63 55 L 54 L Respiratory 17 15 14 Rate Blood Pressure 105/70 105/70 105/70 O2 Sat by Pulse 97 97 98 Oximetry 11/30/19 11/30/19 11/30/19 05:30 05:41 05:51 Temperature Pulse Rate 55 L 58 L 57 L Respiratory 16 19 14 Rate Blood Pressure 105/70 105/70 105/70 O2 Sat by Pulse 98 99 98 Oximetry 11/30/19 11/30/19 11/30/19 06:01 06:11 06:20 Temperature Pulse Rate 58 L 54 L 58 L Respiratory 13 14 15 Rate Blood Pressure 105/70 105/70 105/70 O2 Sat by Pulse 98 98 98 Oximetry 11/30/19 11/30/19 11/30/19 06:31 06:41 06:51 Temperature Pulse Rate 55 L 57 L 58 L Respiratory 16 14 15 Rate Blood Pressure 105/70 105/70 105/70 O2 Sat by Pulse 99 98 98 Oximetry 11/30/19 11/30/19 11/30/19 07:01 07:11 07:21 Temperature Pulse Rate 56 L 53 L 56 L Respiratory 17 14 15 Rate Blood Pressure 105/70 105/70 105/70 O2 Sat by Pulse 98 98 98 Oximetry 11/30/19 11/30/19 11/30/19 07:31 07:41 07:50 Temperature Pulse Rate 60 65 61 Respiratory 15 14 15 Rate Blood Pressure 105/70 105/70 105/70 O2 Sat by Pulse 97 98 100 Oximetry 11/30/19 11/30/19 11/30/19 08:00 08:09 08:11 Temperature Pulse Rate 69 69 77 Respiratory 13 17 Rate Blood Pressure 105/70 105/70 O2 Sat by Pulse 100 98 Oximetry 11/30/19 11/30/19 08:21 08:31 Temperature Pulse Rate 56 L 62 Respiratory 15 12 Rate Blood Pressure 105/70 105/70 O2 Sat by Pulse 98 99 Oximetry CBC and BMP: 11/28/19 14:26 11/28/19 14:26 ABG, PT/INR, D-dimer: PT/INR, D-dimer PT 12.7 Sec. (12.2-14.9) 11/28/19 14:26 INR 0.94 (0.87-1.13) 11/28/19 14:26 Abnormal lab findings: Abnormal Labs 11/28/19 11/28/19 11/29/19 14:26 14:26 05:30 MCV 97 H MCH 34 H MCHC 35 H Lymph % (Auto) 43.1 H [place] % (Auto) 7.8 H Potassium 3.5 L Carbon Dioxide 21 L Glucose 108 H Cholesterol 216 H LDL Cholesterol Direct 151 H HDL Cholesterol 67 H
[2019-11-30] MEDS: ASPIRIN 325 MG TAB PO SCH (10:33)
--- NOTE | 2019-11-30 11:32 | Cat Scan Report ---
CT head/brain wo con INDICATION: post TPA. Right-sided facial weakness. TECHNIQUE: Routine CT head without contrast. All CT scans at this location are performed using CT dos e reduction for ALARA by means of automated exposure control. COMPARISON: None. FINDINGS: BRAIN / INTRACRANIAL CONTENTS: No acute hemorrhage, had first mass effect, or hydrocephalus. There is a questionable developing area of hypoattenuation in the left internal capsule that could represent a developing acute lacunar infarct. There is no associated hemorrhage or adverse mass effect. There i s otherwise normal [place]royo-white differentiation. ORBITS: No significant abnormality of visualized orbits. SINUSES / MASTOIDS: No significant abnormality of visualized sinuses and mastoid air cells. ADDITIONAL FINDINGS: None. IMPRESSION: 1. Potential developing acute lacunar infarct in the left internal capsule (new since the prior study ). No associated hemorrhage or adverse mass effect. 2. No other acute findings. Signer Name: Bryan Fuentes MD Signed: 11/30/2019 11:28 AM Workstation Name: [id number]
--- NOTE | 2019-11-30 16:36 | Progress Note ---
Assessment and Plan Assessment and plan: 49 YO Male with a history of HTN presented to ED for evaluation of weakness of the right arm and right facial droop. He was in his usual state of health until nadja the day of presentation when he noted symptoms while mowing his lawn. Patient states that he went inside to get some rest at approximately 1300 hrs. and experienced an acute onset of right-sided facial droop, slurred speech, as well as right arm weakness. EMS was notified and upon arrival the patient was found to have a neurologic deficit. A code stroke was called and the patient was transported to [facility] for further care and evaluation of the aforementioned symptoms. Patient seen and evaluated in the emergency department. Lab and katia ging studies reviewed. Patient found to have findings consistent with acute CVA. Patient treated with TPA in the emergency department. Patient symptoms improved with therapy. Patient initiated on stroke protocol. Patient admitted to ICU. He was monitored in the ICU for 24 hours. 11/29. Patient seen and examined at bedside this am. Has slight right facial droop but no weakness of his extremities. His echo shows no PFO or thrombus. He is on aspirin and statins. Neurology consulted today - Patient Problems (1) CVA (cerebral vascular accident) Current Visit: Yes Status: Acute Plan to address problem: Continue aspirin and statins Echocardiogram shows no PFO, shunt or thrombus. Neurology consulted CTA head and neck ordered (2) Hypertension Current Visit: Yes Status: Acute Qualifiers: Hypertension type: essential hypertension Qualified Code(s): I10 - Es sential (primary) hypertension Plan to address problem: Continue to monitor blood pressure closely Allow permissive hypertension as per neurology. (3) DVT prophylaxis Current Visit: Yes Status: Acute Plan to address problem: Lovenox daily History Interval history: See assessment and plan Hospitalist Physical - Constitutional Vitals: Temp Pulse Resp BP Pulse Ox 98 F 56 L 18 124/81 100 11/30/19 12:00 11/30/19 15:00 11/30/19 15:00 11/30/19 15:11/30/19 15:00 General appearance: Present: mild distress - EENT Eyes: Present: PERRL, EOM intact - Neck Neck: Present: supple, normal ROM - Respiratory Respiratory: bilateral: CTA - Cardiovascular Rhythm: regular Heart Sounds: Present: S1 & S2 - Extremities Extremities: no ischemia, No edema - Abdominal General gastrointestinal: soft, non-tender, non-distended, normal bowel sounds - Psychiatric Psychiatric: appropriate mood/affect - Neurologic Neurologic: other (Alert and oriented x3, slight right-sided facial droop. No w eakness in all 4 extremities.) HEART Score - HEART Score Troponin: Troponin T < 0.010 ng/mL (0.00-0.029) 11/28/19 14: Results - Labs CBC & Chem 7: 11/28/19 14:26 11/28/19 14:26 Labs: Laboratory Last Values WBC 7.7 K/mm3 (4.5-11.0) 11/28/19 14: RBC 3.83 M/mm3 (3.65-5.03) 11/28/19 14: Hgb 13.1 gm/dl (11.8-15.2) 11/28/19 14: Hct 37.0 % (35.5-45.6) 11/28/19 14: MCV 97 fl (84-94) H 11/28/19 14: MCH 34 pg (28-32) H 11/28/19 14: MCHC 35 % (32-34) H 11/28/19 14: RDW 14.3 % (13.2-15.2) 11/28/19 14: Plt Count 291 K/mm3 (140-440) 11/28/19 14: Lymph % (Auto) 43.1 % (13.4-35.0) H 11/28/19 14: [place] % (Auto) 7.8 % (0.0-7.3) H 11/28/19 14: Eos % (Auto) 0.7 % (0.0-4.3) 11/28/19 14: Baso % (Auto) 0.5 % (0.0-1.8) 11/28/19 14: Lymph # 3.3 K/mm3 (1.2-5.4) 11/28/19 14: [place] # 0.6 K/mm3 (0.0-0.8) 11/28/19 14: Eos # 0.1 K/mm3 (0.0-0.4) 11/28/19 14: Baso # 0.0 K/mm3 (0.0-0.1) 11/28/19 14:26 Seg Neutrophils % 47.9 % (40.0-70.0) 11/28/19 14:26 Seg Neutrophils # 3.7 K/mm3 (1.8-7.7) 11/28/19 14:26 PT 12.7 Sec. (12.2-14.9) 11/28/19 14:26 INR 0.94 (0.87-1.13) 11/28/19 14:26 APTT 26.7 Sec. (24.2-36.6) 11/28/19 14:26 Thrombin Time 16.1 Sec. (15.1-19.6) 11/28/19 14:26 Sodium 139 mmol/L (137-145) 11/28/19 14:26 Potassium 3.5 mmol/L (3.6-5.0) L 11/28/19 14:26 Chloride 99.9 mmol/L (98-107) 11/28/19 14:26 Carbon Dioxide 21 mmol/L (22-30) L 11/28/19 14:26 Anion Gap 22 mmol/L 11/28/19 14:26 BUN 11 mg/dL (9-20) 11/28/19 14:26 Creatinine 1.0 mg/dL (0.8-1.3) 11/28/19 14:26 Estimated GFR > 60 ml/min 11/28/19 14:26 BUN/Creatinine Ratio 11 % 11/28/19 14:26 Glucose 108 mg/dL (75-100) H 11/28/19 14:26 POC Glucose 92 (70-105) 11/28/19 14:41 Calcium 9.4 mg/dL (8.4-10.2) 11/28/19 14:26 Troponin T < 0.010 ng/mL (0.00-0.029) 11/28/19 14:26 Triglycerides 60 mg/dL (2-149) 11/29/19 05:30 Cholesterol 216 mg/dL (50-199) H 11/29/19 05:30 LDL Cholesterol Direct 151 mg/dL (50-130) H 11/29/19 05:30 HDL Cholesterol 67 mg/dL (40-59) H 11/29/19 05:30 Cholesterol/HDL Ratio 3.22 % 11/29/19 05:30 - Diagnostic Impressions Diagnostic Impressions: Echocardiogram 11/28/19 15:36 Transthoracic Echocardiogram Indication: Stroke BP: 135/88 HR: 62 Conclusions *Global left ventricular systolic function is normal. *The estimated ejection fraction is 55-60%. *Mild to moderate concentric left ventricular hypertrophy is observed. *There is trace of mitral regurgitation. *There is trace tricuspid regurgitation. *There is evidence of borderline pulmonary hypertension. *The right ventricular systolic pressure is calculated at 27 mmHg. *A patent foramen ovale is not demonstrated by agitated saline contrast. Findings Left Ventricle: The left ventricular chamber size is normal. Mild to moderate concentric left ventricular hypertrophy is observed. Global left ventricular systolic function is normal. The estimated ejection fraction is 55-60%. Left Atrium: The left atrial chamber size is normal. Right Ventricle: The right ventricular cavity size is normal. The right ventricular global systolic function is normal. Right Atrium: The right atrial cavity size is normal. A patent foramen ovale is not demonstrated by agitated saline contrast. Aortic Valve: The aortic valve leaflets are mildly thickened. There is no evidence of aortic regurgitation. There is no evidence of aortic stenosis. Mitral Valve: The mitral valve leaflets are mildly thickened. There is trace of mitral regurgitation. There is no evidence of mitral stenosis. Tricuspid Valve: There is trace tricuspid regurgitation. The right ventricular systolic pressure is calculated at 27 mmHg. There is evidence of borderline pulmonary hypertension. Pulmonic Valve: There is mild pulmonic regurgitation. Pericardium: There is no pericardial effusion. Aorta: There is no dilatation of the ascending aorta. There is no dilatation of the aortic root. Venous: The inferior vena cava appears normal in size. Contrast: Intravenous agitated saline contrast was used to assess intracardiac shunting. Measurements Chambers 2D Name Value Normal Range IVSd (2D) 1.02 cm (0.6 - 1.1) LVPWd (2D) 1.02 cm (0.6 - 1.1) LVIDd (2D) 4.82 cm (3.7 - 5.6) LVIDs (2D) 2.96 cm (2 - 3.8) LV FS (2D) 38.53 % - EF Teichholz (2D) 68.73 % - Ao root diameter (2D) 3.1 cm (2 - 3.7) Volumes/Mass Name Value Normal Range LA ESV SP 4CH (A/L) 37.36 ml - LA ESV SP 2CH (A/L) 40.49 ml - LA ESV BP (A/L) 40.55 ml - LA ESV BP (A/L) index 21.34 ml/m2 - LA ESV SP 4CH (MOD) 35.24 ml - LA ESV SP 2CH (MOD) 39.71 ml - LA ESV BP (MOD) 38.87 ml - LA ESV BP (MOD) index 20.46 ml/m2 - Diastolic/Systolic Function Name Value Normal Range MV E-wave Vmax 0.83 m/sec - MV deceleration time 184.73 msec - MV A-wave Vmax 0.57 m/sec - MV E:A ratio 1.47 ratio - Aortic Valve Name Value Normal Range AV Vmax 1.41 m/sec - AV VTI 28.16 cm - AV peak gradient 7.91 mmHg - AV mean gradient 4.5 mmHg - LVOT diameter 2.05 cm - LVOT Vmax 1.02 m/sec - LVOT VTI 21.9 cm - LVOT peak gradient 4.15 mmHg - LVOT mean gradient 2.45 mmHg - SV LVOT 72.47 ml - MANDI (continuity Vmax) 2.4 cm2 - MANDI (continuity VTI) 2.57 cm2 - Tricuspid Valve Name Value Normal Range TR Vmax 2.45 m/sec - TR peak gradient 24 mmHg - RAP 3 mmHg - RVSP 27 mmHg - Pulmonic Valve/Qp:Qs Name Value Normal Range PV Vmax 1.03 m/sec - PV peak gradient 4.27 mmHg - MI end-diastolic Vmax 1.1 m/sec - PV acceleration time 133.21 msec - Myas/IV: Voiding Method Urinal IV Catheter Type [Right INT / Saline Lock Antecubital] IV Catheter Type [Left Forearm Peripheral IV ] Active Medications - Current Medications Current Medications: Generic Name Dose Route Start Last Admin Trade Name Freq PRN Reason Stop Dose Admin Acetaminophen 650 mg 11/28/19 15:35 Tylenol PO Q4H PRN Pain, Mild (1-3) Aspirin 325 mg 11/29/19 10:00 11/30/19 10:33 Aspirin PO 325 mg QDAY DUSTIN Administration Bisacodyl 10 mg 11/28/19 15:35 Dulcolax MI QDAY PRN Constipation Labetalol HCl 10 mg 11/28/19 14:38 Labetalol IV Q5MIN PRN to maintain SBP < 180 Magnesium Hydroxide 30 ml 11/28/19 15:35 Milk Of Magnesia PO Q4H PRN Constipation Metoclopramide HCl 10 mg 11/28/19 15:35 Reglan PO Q6H PRN Nausea And Vomiting Ondansetron HCl 4 mg 11/28/19 15:35 Zofran IV Q8H PRN Nausea And Vomiting Pravastatin Sodium 40 mg 11/28/19 22:00 11/29/19 22:48 Pravachol PO 40 mg QHS DUSTIN Administration Promethazine HCl 25 mg 11/28/19 15:35 Phenergan MI Q6H PRN Nausea And Vomiting Sodium Chloride 10 ml 11/28/19 15:35 Sodium Chloride Flush Syringe 10 Ml IV PRN PRN LINE FLUSH Temazepam 15 mg 11/29/19 22:33 11/29/19 22:51 Restoril PO 15 mg QHS PRN Administration Sleep
--- NOTE | 2019-11-30 16:46 | Consultation ---
History of Present Illness Consult date: 11/30/19 Reason for Consult: Right sided weakness, dysarthria Chief complaint: Right sided weakness, dysarthria History of present illness: Patient is a 49 y/o man w/ a h/o HTN. He presented 2 days ago with symptoms of difficulty with speech, right facial weakness, and RUE weakness/numbness. Symptoms began when he was mowing his lawn. Patient was brought to [facility] for further evaluation, and was given tPA in the ER. Today, patient feels much better, and states that his symptoms have resolved. Past History Past Medical History: hypertension Past Surgical History: No surgical history, Other (Reviewed) Social history: , lives with family, smoking. denies: alcohol abuse, prescription drug abuse Family history: hypertension Medications and Allergies Allergies Allergy/AdvReac Type Severity Reaction Status Date / Time No Known Allergies Allergy Unverified 11/28/19 14:14 Active Meds: Active Medications Acetaminophen (Tylenol) 650 mg PO Q4H PRN PRN Reason: Pain, Mild (1-3) Aspirin (Aspirin) 325 mg PO QDAY [facility] Last Admin: 11/30/19 10:33 Dose: 325 mg Documented by: Bisacodyl (Dulcolax) 10 mg [place] QDAY PRN PRN Reason: Constipation Labetalol HCl (Labetalol) 10 mg IV Q5MIN PRN PRN Reason: to maintain SBP < 180 Magnesium Hydroxide (Milk Of Magnesia) 30 ml PO Q4H PRN PRN Reason: Constipation Metoclopramide HCl (Reglan) 10 mg PO Q6H PRN PRN Reason: Nausea And Vomiting Ondansetron HCl (Zofran) 4 mg IV Q8H PRN PRN Reason: Nausea And Vomiting Pravastatin Sodium (Pravachol) 40 mg PO QHS [facility] Last Admin: 11/29/19 22:48 Dose: 40 mg Documented by: Promethazine HCl (Phenergan) 25 mg [place] Q6H PRN PRN Reason: Nausea And Vomiting Sodium Chloride (Sodium Chloride Flush Syringe 10 Ml) 10 ml IV PRN PRN PRN Reason: LINE FLUSH Temazepam (Restoril) 15 mg PO QHS PRN PRN Reason: Sleep Last Admin: 11/29/19 22:51 Dose: 15 mg Documented by: Review of Systems All systems: negative Neurological: weakness, numbness, change in speech Physical Examination - Vital Signs Vital Signs: Vital Signs Temp Pulse Resp BP Pulse Ox 98.4 F 80 16 105/63 97 11/28/19 14:30 11/28/19 14:30 11/28/19 14:30 11/28/19 14:30 11/28/19 14:30 - Physical Exam Narrative exam: Patient is alert, awake, oriented x4, follows complex commands. No dysarthria or aphasia noted. PERRL, EOMI, VFF, tongue midline, bilaterally intact to LT, mild right lower facial weakness noted. 5/5 strength in all extremities. Bilaterally intact light touch. Bilaterally intact to FTN and HTS. - Level of Consciousness 1a. Level of Consciousness: alert/keenly responsive - LOC Questions 1b. LOC Questions: answers both correctly - LOC Command 1c. LOC Commands: performs tasks correctly - Best Gaze 2. Best Gaze: normal - Visual 3. Visual: no visual loss - Facial Palsy 4. Facial Palsy: minor paralysis - Motor Arm 5a. Motor Arm Left: no drift 5b. Motor Arm Right: no drift - Motor Leg 6a. Motor Leg Left: no drift 6b. Motor Leg Right: no drift - Limb Ataxia 7. Limb Ataxia: absent - Sensory 8. Sensory: normal - Best Language 9. Best Language: no aphasia - Dysarthria 10. Dysarthria: normal - Extinction and Inattention 11. Extinction/Inattention: no abnormality - Scoring Total Score: 1 Stroke Severity: Minor Stroke Results - Laboratory Findings CBC and BMP: 11/28/19 14:26 11/28/19 14:26 Abnormal Lab Findings: Abnormal Labs 11/28/19 11/28/19 11/29/19 14:26 14:26 05:30 MCV 97 H MCH 34 H MCHC 35 H Lymph % (Auto) 43.1 H [place] % (Auto) 7.8 H Potassium 3.5 L Carbon Dioxide 21 L Glucose 108 H Cholesterol 216 H LDL Cholesterol Direct 151 H HDL Cholesterol 67 H Assessment and Plan Patient is a 49 y/o man w/ a h/o HTN, who p/w right sided weakness and slurred speech. According to the patient's clinical findings, he has likely had a strok e. Plan: 1. Stroke: - MRI brain: Pending - CTA head/neck: Pending - Initial CT head: No acute abnormalities. - CT head 8/25/20: Left subcortical infarct infarct. - CUS: No significant stenosis. - Echo: EF 55-60%, LA normal size, bubble study negative. - Cont. ASA - Cont. statin. LDL goal <70 - Telemetry monitoring while in house - PT/OT/ST - DVT Ppx: Recommend lovenox - Recommended for patient to stop smoking. 2. Hypertension: - Recommend BP goal of normotension, as it has been >48 hours since symptom onset. - Will continue to monitor patient. Thank you for allowing me to take part in the care of this patient. John Saucedo MD Neurology This clinical encounter was provided via live telemedicine platform. Consultative service was provided for neurology to support local providers. The Acute Teleneurology team should be contacted with any neurologic worsening or clinical changes, new test results, or new patient history that is reported to or discovered by the local team following completion of the teleneurology consultation, specifically that which has the potential to impact the consultative recommendations. Patient/Family was informed the Neurology Consult would happen via TeleHealth consult by way of interactive audio and video telecommunications and consented to receiving care in this manner. Due to the potential for life-threatening deterioration due to underlying neurologic illness, and limited resources available for patient care, telemedicine was used as means of patient care. Telemedicine consultation is limited in the extent of physical exam that can be virtually provided. Time spent evaluating patient includes time for face to face visit via telemedicine, review of medical records, imaging studies and discussion of findings with providers, the patient and/or family.
--- NOTE | 2019-11-30 17:16 | Cat Scan Report ---
CTA HEAD AND NECK WITH CONTRAST HISTORY: Stroke, right-sided weakness. COMPARISON: None. TECHNIQUE: All CT scans at this location are performed using CT dose reduction for ALARA by means of automated exposure control.. 3-D/MIP reformats postprocessed. Percentage stenosis is determined by d irect quantitative measurements of diseased internal carotid artery diameter compared with normal dis jah internal carotid artery reference segments or by criteria similar to NASCET where applicable. CONTRAST: 100 ml of Omnipaque 350 FINDINGS: CTA HEAD: Intracranial vertebral arteries: No significant abnormality. Basilar artery: No significant abnormality. Posterior cerebral arteries: No significant abnormality. Intracranial internal carotid arteries: No significant abnormality. Anterior cerebral arteries: No significant abnormality. Middle cerebral arteries: The left MCA appears to have a relatively late/lateral bifurcation point bu t there is no definite large vessel occlusion or stenosis. Dural venous sinuses:Not optimally opacified. No significant abnormality. CTA NECK: Aortic arch: No significant abnormality. Cervical vertebral arteries: No significant abnormality. Common carotid arteries: No significant abnormality. Cervical internal carotid arteries: There is trace atherosclerotic plaque in the bilateral proximal c ervical internal carotid arteries without any significant stenosis or large vessel occlusion. 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 IMPRESSION: 1. No focal flow-limiting stenosis or large vessel occlusion throughout the neck or intracranial lucas justin. Signer Name: Bryan Fuentes MD Signed: 11/30/2019 5:11 PM Workstation Name: [id number]
[2019-11-30] MEDS: TEMAZEPAM 15 MG CAP PO PRN (21:38)
[2019-12-01] MEDS ORDERED: LORazepam 2 MG/ML VIAL IV NR (08:54)
[2019-12-01 09:25] VITALS: BP 119/85
[2019-12-01] MEDS ORDERED: ASPIRIN EC 81 MG TAB PO SCH (10:00)
--- NOTE | 2019-12-01 11:16 | Magnetic Resonance Report ---
MRI BRAIN 12/01/2019 INDICATION / CLINICAL INFORMATION: MAIN. Right-sided facial weakness. Speech disturbance. Right upper extremity weakness. TECHNIQUE: Multiplanar, multisequence MR images of the brain were obtained. COMPARISON: CT brain 11/30/2019 FINDINGS: BRAIN / INTRACRANIAL CONTENTS: Unenhanced MR images of the vein demonstrate 9 mm area of restricted d iffusion in the left centrum semiovale, corresponding to the area of hypodensity seen on the head CT from 11/30/2019. This is consistent with acute or recent ischemic injury. No other areas of acute or recent ischemic injury are noted. Sulci are within normal limits of size and shape for a patient of this age. There is no evidence of hemorrhage or mass. There are no abnormal extra-axial fluid collections. EXTRACRANIAL: Unremarkable CRANIOCERVICAL JUNCTION: No significant abnormality. VASCULAR FLOW-VOIDS: No significant abnormality. IMPRESSION: Acute left subcortical ischemic injury as described above. No evidence of hemorrhage. Otherwise nega tive exam. Signer Name: Roman Ryena MD Signed: 12/01/2019 11:11 AM Workstation Name: [id number]
--- NOTE | 2019-12-01 11:29 | Discharge Summary ---
Providers - Providers Date of Admission: 11/28/19 16:53 Date of discharge: 12/01/19 Attending physician: NAYE ARREGUIN 11/28/19 15:35 Occupational Therapy Evaluate and Treat [CONS] Routine Comment: Reason For Exam: Neuro deficits Physical Therapy Evaluation and Treat [CONS] Routine Comment: Reason For Exam: Neuro deficits 11/28/19 17:50 Consult to Physician [CONS] Routine Comment: Consulting Provider: KARYN DAVIS Physician Instructions: Reason For Exam: CVA S/P TPA 11/30/19 09:22 Consult to Physician [CONS] Urgent Comment: Consulting Provider: NAVARRO MARKS Physician Instructions: Reason For Exam: Stroke [facility] Condition: Stable Hospital course: 49 YO Male with a history of HTN and tobacco abuse presented to ED for evaluation of weakness of the right arm and right facial droop. He was in his usual state of health until nadja the day of presentation when he noted symptoms while mowing his lawn. Patient states that he went inside to get some rest at approximately 1300 hrs. and experienced an acute onset of right-sided facial droop, slurred speech, as well as right arm weakness. EMS was notified and upon arrival the patient was found to have a neurologic deficit. A code stroke was called and the patient was transported to [facility] for further care and evaluation of the aforementioned symptoms. Patient seen and evaluated in the emergency department. Lab and imaging studies reviewed. Patient found to have findings consistent with acute CVA. Patient treated with TPA in the emergency department. Patient symptoms improved with therapy. Patient initiated on stroke protocol. Patient admitted to ICU. He was monitored in the ICU for 24 hours. 11/29. Patient seen and examined at bedside this am. Has slight right facial droop but no weakness of his extremities. His echo shows no PFO or thrombus. He is on aspirin and statins. Neurology consulted today 11/30. His MRI brain shows acute infarct in the left subcortical area. Head and neck CTA shows no thrombosis. He has been advised to quit tobacco abuse. He will be discharged on aspirin and statins. He will follow up with neurology in the office. He agrees with plan Disposition: TO HOME OR SELFCARE - Discharge Diagnoses (1) CVA (cerebral vascular accident) Status: Acute (2) Hypertension Status: Acute Qualifiers: Hypertension type: essential hypertension Qualified Code(s): I10 - Essential (primary) hypertension (3) DVT prophylaxis Status: Acute Core Measure Documentation - Palliative Care Palliative Care/ Comfort Measures: Not Applicable - Core Measures Any of the following diagnoses?: stroke - Stroke Discharge Requirements Statin for LDL = or >70 mg/dl on DC: Yes Anticoag for atrial fib/atrial flutter: Not Applicable Antithrombotic for ischemic stroke: Yes Exam - Constitutional Vitals: Temp Pulse Resp BP Pulse Ox 98.4 F 56 L 20 119/85 96 12/01/19 07:26 12/01/19 07:26 12/01/19 07:26 12/01/19 07:26 12/01/19 07:26 General appearance: Present: no acute distress, well-nourished - EENT Eyes: Present: PERRL ENT: hearing intact, clear oral mucosa - Neck Neck: Present: supple, normal ROM - Respiratory Respiratory effort: normal Respiratory: bilateral: CTA - Cardiovascular Heart Sounds: Present: S1 & S2. Absent: rub, click - Extremities Extremities: pulses symmetrical, No edema Peripheral Pulses: within normal limits - Abdominal General gastrointestinal: Present: soft, non-tender, non-distended, normal bowel sounds Male genitourinary: Present: normal - Integumentary Integumentary: Present: clear, warm, dry - Musculoskeletal Musculoskeletal: gait normal, strength equal bilaterally - Psychiatric Psychiatric: appropriate mood/affect, intact judgment & insight - Neurologic Neurologic: CNII-XII intact, moves all extremities Plan Diet: low fat, low cholesterol Additional Instructions: Continue aspirin and statins as ordered. Stop tobacco abuse. Follow up with neurologist in the office in 1-2 weeks Follow up with: JOSIANE MORALES MD [Primary Care Provider] - 7 Days NAVARRO MARKS MD [Staff Physician] - 7 Days Prescriptions: AtorvaSTATin [Lipitor] 80 mg PO QHS #60 tab Temazepam [Restoril] 15 mg PO QHS PRN #10 capsule PRN Reason: Sleep Aspirin EC [Halfprin EC] 81 mg PO QDAY #60 tablet
--- NOTE | 2019-12-01 13:25 | Progress Note ---
Assessment and Plan Patient is a 49 y/o man w/ a h/o HTN, who p/w right sided weakness and slurred speech. According to the patient's clinical findings, he has likely had a stroke. Plan: 1. Stroke: - MRI brain: Left subcortical stroke. - CTA head/neck: No significant stenosis - Initial CT head: No acute abnormalities. - CT head 11/30/19: Left subcortical infarct infarct. - CUS: No significant stenosis. - Echo: EF 55-60%, LA normal size, bubble study negative. - Recommend dual antiplatelet therapy with aspirin 81 mg daily and Plavix 75 mg daily for 30 days, after which Plavix can be stopped. Discussed risks and benefits of dual antiplatelet therapy with patient, including hemorrhage, and patient agreed to take this. - Cont. statin. LDL goal <70 - Telemetry monitoring while in house - PT/OT/ST - DVT Ppx: Recommend lovenox - Recommended for patient to stop smoking. 2. Hypertension: - Recommend BP goal of normotension, as it has been >48 hours since symptom onset. - Recommend for patient to follow up with neurology in clinic in 3-4 weeks. - Will sign off, as neurologic investigations are complete and treatment plan is in place. Please call with any questions. Thank you for allowing me to take part in the care of this patient. John Saucedo MD Neurology This clinical encounter was provided via live telemedicine platform. Cons ultative service was provided for neurology to support local providers. The Acute Teleneurology team should be contacted with any neurologic worsening or clinical changes, new test results, or new patient history that is reported to or discovered by the local team following completion of the teleneurology consultation, specifically that which has the potential to impact the consultative recommendations. Patient/Family was informed the Neurology Consult would happen via TeleHealth consult by way of interactive audio and video telecommunications and consented to receiving care in this manner. Due to the potential for life-threatening deterioration due to underlying neurologic illness, and limited resources available for patient care, telemedicine was used as means of patient care. Telemedicine consultation is limited in the extent of physical exam that can be virtually provided. Time spe nt evaluating patient includes time for face to face visit via telemedicine, review of medical records, imaging studies and discussion of findings with providers, the patient and/or family. Subjective Date of service: 12/01/19 Principal diagnosis: Stroke Interval history: No acute events overnight. Objective - Exam Narrative Exam: Patient is alert, awake, oriented x4, follows complex commands. No dysarthria or aphasia noted. PERRL, EOMI, VFF, tongue midline, bilaterally intact to LT, mild right lower facial weakness noted. 5/5 strength in all extremities. Bilaterally intact light touch. Bilaterally intact to FTN and HTS. - Vital Sign Vital Signs - 12hr 12/01/19 12/01/19 12/01/19 03:20 07:26 10:00 Temperature 98.3 F 98.4 F Pulse Rate 58 L 56 L Respiratory 16 20 Rate Blood Pressure 117/75 119/85 O2 Sat by Pulse 97 96 99 Oximetry - Laboratory Findings CBC and BMP: 11/28/19 14:26 11/28/19 14:26 Abnormal Lab Findings: Abnormal Labs 11/28/19 11/28/19 11/29/19 14:26 14:26 05:30 MCV 97 H MCH 34 H MCHC 35 H Lymph % (Auto) 43.1 H [place] % (Auto) 7.8 H Potassium 3.5 L Carbon Dioxide 21 L Glucose 108 H Cholesterol 216 H LDL Cholesterol Direct 151 H HDL Cholesterol 67 H
--- NOTE | 2019-12-01 14:18 | Progress Note ---
Assessment and Plan - Patient Problems (1) CVA (cerebral vascular accident) Status: Acute (2) Hypertension Status: Acute Qualifiers: Hypertension type: essential hypertension Qualified Code(s): I10 - Luís shahram (primary) hypertension Subjective Date of service: 12/01/19 Principal diagnosis: Stroke Objective Vital Signs - 12hr 12/01/19 12/01/19 12/01/19 03:20 07:26 10:00 Temperature 98.3 F 98.4 F Pulse Rate 58 L 56 L Respiratory 16 20 Rate Blood Pressure 117/75 119/85 O2 Sat by Pulse 97 96 99 Oximetry CBC and BMP: 11/28/19 14:26 11/28/19 14:26 ABG, PT/INR, D-dimer: PT/INR, D-dimer PT 12.7 Sec. (12.2-14.9) 11/28/19 14:26 INR 0.94 (0.87-1.13) 11/28/19 14:26 Abnormal lab findings: Abnormal Labs 11/28/19 11/28/19 11/29/19 14:26 14:26 05:30 MCV 97 H MCH 34 H MCHC 35 H Lymph % (Auto) 43.1 H [place] % (Auto) 7.8 H Potassium 3.5 L Carbon Dioxide 21 L Glucose 108 H Cholesterol 216 H LDL Cholesterol Direct 151 H HDL Cholesterol 67 H
[2019-12-02] MEDS ORDERED: CLOPIDOGREL 75 MG TAB PO SCH (10:00)
== END 2019-12-01 14:15 | disposition home or self-care (01) | DRG 62 ==
LOC: ED 14:13 → CC1 16:53 → 4A 11-30 15:53
PROVIDERS: ADMIT Internal Medicine; ATTEND Internal Medicine
DX: I63.412 Cerebral infarction due to embolism of left middle cerebral artery (principal); G81.91 Hemiplegia, unspecified affecting right dominant side; R29.810 Facial weakness; R47.81 Slurred speech; I10 Essential (primary) hypertension; R47.1 Dysarthria and anarthria; R29.705 NIHSS score 5; Z82.49 Family history of ischemic heart disease and other diseases of the circulatory system
CPT/HCPCS: 36415; 70450; 70496; 70498; 70551; 80048; 80061; 82962; 84484; 85025; 85610; 85670; 85730; 93005; 93306; 93880; 99406; G0378; A9270-GY; J2060; J2997; Q9967